=== PATIENT | female | born 1945 | race Caucasian/White ===

== ENCOUNTER 2018-03-30 14:42 | Inpatient (IN) ==
[2018-03-30 17:32] LABS: Basophils % 0.2 % (0.0-0.8); Eosinophils % 0.1 % (0.00-10.9); Hematocrit 44.4 VOL% (35.7-47.0); Immature Granulocytes % 0.3 %; Immature Granulocytes Absolute 0.04 #; Lymphocytes % 6.8 % (21.3-54.2); Mean Corpuscular HGB Conc 31.5 GM/DL (32-36); Mean Corpuscular Hemoglobin 28 PG (27-34); Mean Platelet Volume 9.8 FL (9.6-12.0); Monocytes # 0.6 10*3/uL (0.11-0.8); Neutrophils # 13.2 10*3/uL (1.4-7.4); Neutrophils % 88.6 % (38.7-73.9); Platelet Count 329 T/CUMM (130-400); Red Blood Count 4.99 MC/CUMM (3.8-5.5); White Blood Count 14.8 T/CUMM (4-12)
[2018-03-30 17:46] LABS: Albumin 4.3 G/DL (3.4-5.0); Bilirubin,Total 1.7 MG/DL (0.2-1.0); Calcium 9.1 MG/DL (8.5-10.1); Osmolality,Calculated 282.3 MOS/KG (273-304); Potassium 3.5 MMOL/L (3.5-5.1); Total Protein 8.2 G/DL (6.4-8.3)
[2018-03-30 17:49] LABS: Apearance,Urine CLEAR (Clear); Bacteria,Urine Occasional /HPF (Few); Bilirubin,Urine Negative (Negative); Blood, Urine Small mg/dL (Negative); Glucose,Urine (UA) Negative (Negative); Hyaline Casts,Urine 1 /LPF (0-3); Ketones,Urine Negative (Negative); Mucus,Urine Occasional /LPF (Occasional); Nitrite,Urine Negative (Negative); Protein,Urine Negative; RBC,Urine 3 /HPF (0-4); Squamous Epithelial Cell,Urine Occasional /HPF (0-10); Urine Color Yellow (Yellow); Urine Specific Gravity 1.006 (1.001-1.035); WBC,Urine 5 /HPF (0-6)
[2018-03-30] MEDS ORDERED: SODIUM CHLORIDE 0.9% 1,000 ML IV STA (18:05)
[2018-03-30] MEDS ORDERED: fentaNYL 100 MCG/2 ML VIAL IV STA (18:05)
[2018-03-30] MEDS ORDERED: METOCLOPRAMIDE 10 MG/2 ML VIAL IV STA (18:05)
[2018-03-30] MEDS ORDERED: PANTOPRAZOLE 40 MG VIAL IV STA (18:05)
[2018-03-30] MEDS ORDERED: ONDANSETRON 4 MG/2 ML VIAL IV STA (18:05)
[2018-03-30] MEDS ORDERED: METOCLOPRAMIDE 10 MG/2 ML VIAL ONE (18:23)
[2018-03-30] MEDS ORDERED: ONDANSETRON 4 MG/2 ML VIAL ONE (18:23)
[2018-03-30] MEDS ORDERED: PANTOPRAZOLE 40 MG VIAL IV ONE (18:23)
[2018-03-30 18:26] LABS: Troponin I < 0.015 NG/ML (0.00-0.045)
[2018-03-30] MEDS ORDERED: MEPERIDINE 25 MG/1 ML VIAL IV STA (18:30)
[2018-03-30] MEDS ORDERED: MEPERIDINE 25 MG/1 ML VIAL ONE (18:33)
[2018-03-30] MEDS ORDERED: INFLUENZA VIRUS VACCINE 0.5 ML SYRINGE IM ONE (20:39)
[2018-03-30] MEDS: SODIUM CHLORIDE 0.9% 1,000 ML IV SCH (21:08)
[2018-03-30] MEDS: metroNIDAZOLE INJ 500 MG in PREMIX 1 EACH IV SCH (21:11)
[2018-03-30] MEDS ORDERED: hydrALAZINE 20 MG/1 ML VIAL IV PRN (21:37)
[2018-03-30] MEDS: LEVOFLOXACIN INJ 750 MG in PREMIX 1 EACH IV SCH (22:34)
[2018-03-31] MEDS: metroNIDAZOLE INJ 500 MG in PREMIX 1 EACH IV SCH ×3 (04:22→17:27)
[2018-03-31 04:49] LABS: Basophils % 0.1 % (0.0-0.8); Eosinophils % 0.1 % (0.00-10.9); Hematocrit 37.1 VOL% (35.7-47.0); Immature Granulocytes % 0.3 %; Immature Granulocytes Absolute 0.02 #; Lymphocytes # 1.2 10*3/uL (1.4-4.0); Lymphocytes % 18.4 % (21.3-54.2); Mean Corpuscular Hemoglobin 28 PG (27-34); Mean Corpuscular Volume 89.8 FL (87-102); Mean Platelet Volume 11.5 FL (9.6-12.0); Monocytes # 0.3 10*3/uL (0.11-0.8); Monocytes % 3.9 % (1.7-12.7); Neutrophils # 5.2 10*3/uL (1.4-7.4); Neutrophils % 77.2 % (38.7-73.9); Red Blood Count 4.13 MC/CUMM (3.8-5.5); Red Cell Distribution Width 13.1 % (9.3-17.3)
[2018-03-31 04:54] LABS: Hemoglobin 11.5 GM/DL (12.0-16.0); White Blood Count 6.7 T/CUMM (4-12)
[2018-03-31 04:55] LABS: Platelet Count 201 T/CUMM (130-400)
[2018-03-31 05:04] LABS: Albumin 3.2 G/DL (3.4-5.0); Bilirubin,Total 0.8 MG/DL (0.2-1.0); Calcium 8.2 MG/DL (8.5-10.1); Osmolality,Calculated 284.8 MOS/KG (273-304); Potassium 4.1 MMOL/L (3.5-5.1); Risk Ratio 3.07; Total Protein 6.4 G/DL (6.4-8.3); VLDL CHOLESTEROL 15.2 MG/DL
[2018-03-31] MEDS: SODIUM CHLORIDE 0.9% 1,000 ML IV SCH ×4 (05:22→21:19)
[2018-03-31] MEDS: VERAPAMIL SR 240 MG TABLET PO SCH (11:43)
[2018-03-31] MEDS: LISINOPRIL 20 MG TABLET PO SCH (18:19)
[2018-03-31] MEDS: ONDANSETRON 4 MG/2 ML VIAL IV PRN (20:32)
[2018-03-31] MEDS: LEVOFLOXACIN INJ 750 MG in PREMIX 1 EACH IV SCH (22:45)
[2018-04-01] MEDS: PROMETHAZINE INJ 25 MG in SODIUM CHLORIDE 0.9% 50 ML IV PRN (00:25)
[2018-04-01] MEDS: metroNIDAZOLE INJ 500 MG in PREMIX 1 EACH IV SCH ×4 (02:39→20:54)
[2018-04-01] MEDS: SODIUM CHLORIDE 0.9% 1,000 ML IV SCH ×2 (03:32→08:47)
[2018-04-01 04:33] LABS: Basophils % 0.3 % (0.0-0.8); Hematocrit 37.3 VOL% (35.7-47.0); Hemoglobin 11.6 GM/DL (12.0-16.0); Immature Granulocytes % 0.7 %; Immature Granulocytes Absolute 0.05 #; Lymphocytes # 0.8 10*3/uL (1.4-4.0); Lymphocytes % 11.1 % (21.3-54.2); Mean Corpuscular HGB Conc 31.1 GM/DL (32-36); Mean Corpuscular Hemoglobin 28 PG (27-34); Mean Corpuscular Volume 89.9 FL (87-102); Mean Platelet Volume 9.8 FL (9.6-12.0); Monocytes # 0.1 10*3/uL (0.11-0.8); Monocytes % 1.7 % (1.7-12.7); Neutrophils # 6.5 10*3/uL (1.4-7.4); Neutrophils % 86.2 % (38.7-73.9); Platelet Count 263 T/CUMM (130-400); Red Blood Count 4.15 MC/CUMM (3.8-5.5); Red Cell Distribution Width 12.9 % (9.3-17.3); White Blood Count 7.5 T/CUMM (4-12)
[2018-04-01 05:00] LABS: Albumin 3.4 G/DL (3.4-5.0); Bilirubin,Total 0.5 MG/DL (0.2-1.0); Calcium 8.3 MG/DL (8.5-10.1); Osmolality,Calculated 273.7 MOS/KG (273-304); Potassium 3.6 MMOL/L (3.5-5.1); Total Protein 6.7 G/DL (6.4-8.3)
[2018-04-01] MEDS: VERAPAMIL SR 240 MG TABLET PO SCH (08:00)
[2018-04-01] MEDS ORDERED: TISSUE ADHESIVE 1 EACH APPLICATOR TOP ONE (08:35)
[2018-04-01] MEDS ORDERED: BUPIVACAINE MPF 0.25% 30 ML VIAL ONE (08:35)
[2018-04-01] MEDS ORDERED: LIDOCAINE 1%/EPI INJ 20 ML VIAL ONE (08:35)
[2018-04-01] MEDS ORDERED: PROPOFOL 200 MG/20 ML VIAL IV ONE (10:13)
[2018-04-01] MEDS ORDERED: fentaNYL 100 MCG/2 ML VIAL ONE ×2 (10:13→10:14)
[2018-04-01] MEDS ORDERED: DEXAMETHASONE 10 MG/1 ML VIAL ONE (10:14)
[2018-04-01] MEDS ORDERED: SEVOFLURANE 1 UNIT/15 MINUTE INH ONE (10:15)
[2018-04-01] MEDS ORDERED: ONDANSETRON 4 MG/2 ML VIAL ONE (10:15)
[2018-04-01] MEDS ORDERED: ePHEDrine 50 MG/ML AMP ONE (10:15)
[2018-04-01] MEDS ORDERED: NEOSTIGMINE 10 MG/10 ML VIAL ONE (10:15)
[2018-04-01] MEDS ORDERED: ROCURONIUM 100 MG/10 ML VIAL IV ONE (10:15)
[2018-04-01] MEDS ORDERED: GLYCOPYRROLATE 0.4 MG/2 ML VIAL ONE (10:16)
[2018-04-01] MEDS: HYDROmorphone 2 MG/1 ML VIAL IV PRN ×2 (14:35→17:48)
[2018-04-01] MEDS: LISINOPRIL 20 MG TABLET PO SCH (20:55)
[2018-04-01] MEDS: LEVOFLOXACIN INJ 750 MG in PREMIX 1 EACH IV SCH (22:40)
[2018-04-02] MEDS: metroNIDAZOLE INJ 500 MG in PREMIX 1 EACH IV SCH ×4 (02:35→21:20)
[2018-04-02 05:53] LABS: Hematocrit 37.8 VOL% (35.7-47.0); Hemoglobin 11.6 GM/DL (12.0-16.0); Immature Granulocytes % 0.3 %; Immature Granulocytes Absolute 0.02 #; Lymphocytes # 0.8 10*3/uL (1.4-4.0); Lymphocytes % 11.3 % (21.3-54.2); Mean Corpuscular HGB Conc 30.7 GM/DL (32-36); Mean Corpuscular Hemoglobin 28 PG (27-34); Mean Corpuscular Volume 91.1 FL (87-102); Mean Platelet Volume 10.1 FL (9.6-12.0); Monocytes # 0.3 10*3/uL (0.11-0.8); Monocytes % 4.8 % (1.7-12.7); Neutrophils # 5.9 10*3/uL (1.4-7.4); Neutrophils % 83.6 % (38.7-73.9); Platelet Count 271 T/CUMM (130-400); Red Blood Count 4.15 MC/CUMM (3.8-5.5); Red Cell Distribution Width 13.1 % (9.3-17.3); White Blood Count 7.1 T/CUMM (4-12)
[2018-04-02 06:03] LABS: Albumin 3.3 G/DL (3.4-5.0); Calcium 8.8 MG/DL (8.5-10.1); INR 1.1; Osmolality,Calculated 280.3 MOS/KG (273-304); PT Patient Result 11.4 SECS; Potassium 4.5 MMOL/L (3.5-5.1); Total Protein 6.5 G/DL (6.4-8.3)
[2018-04-02] MEDS ORDERED: INDOMETHACIN SUPP 50 MG SUPP RECTAL ONE (06:30)
[2018-04-02] MEDS: VERAPAMIL SR 240 MG TABLET PO SCH (08:05)
[2018-04-02] MEDS ORDERED: LACTATED RINGERS 500 ML IV ONE (09:00)
[2018-04-02] MEDS ORDERED: fentaNYL 100 MCG/2 ML VIAL ONE (10:32)
[2018-04-02] MEDS ORDERED: LIDOCAINE 100 MG/5 ML SYRINGE ONE (10:45)
[2018-04-02] MEDS ORDERED: ESMOLOL 100 MG/10 ML VIAL IV ONE (10:45)
[2018-04-02] MEDS ORDERED: SUCCINYLCHOLINE 200 MG/10 ML VIAL ONE (10:45)
[2018-04-02] MEDS ORDERED: ONDANSETRON 4 MG/2 ML VIAL ONE (10:45)
[2018-04-02] MEDS ORDERED: ROCURONIUM 100 MG/10 ML VIAL IV ONE (10:45)
[2018-04-02] MEDS ORDERED: PROPOFOL 200 MG/20 ML VIAL IV ONE (10:45)
[2018-04-02] MEDS ORDERED: SEVOFLURANE 1 UNIT/15 MINUTE INH ONE (12:08)
[2018-04-02] MEDS ORDERED: ONDANSETRON 4 MG/2 ML VIAL IV ONE (13:43)
[2018-04-02] MEDS: LISINOPRIL 20 MG TABLET PO SCH (18:35)
[2018-04-02] MEDS: PROMETHAZINE INJ 25 MG in SODIUM CHLORIDE 0.9% 50 ML IV PRN (19:40)
[2018-04-02] MEDS: LEVOFLOXACIN INJ 750 MG in PREMIX 1 EACH IV SCH (22:25)
[2018-04-03] MEDS: metroNIDAZOLE INJ 500 MG in PREMIX 1 EACH IV SCH ×2 (02:28→11:38)
[2018-04-03] MEDS: ONDANSETRON 4 MG/2 ML VIAL IV PRN ×2 (04:54→11:32)
[2018-04-03] MEDS: HYDROmorphone 2 MG/1 ML VIAL IV PRN (04:58)
[2018-04-03 06:14] LABS: Basophils % 0.1 % (0.0-0.8); Eosinophils % 0.3 % (0.00-10.9); Hematocrit 37.2 VOL% (35.7-47.0); Hemoglobin 11.7 GM/DL (12.0-16.0); Immature Granulocytes % 0.4 %; Immature Granulocytes Absolute 0.03 #; Lymphocytes # 1.8 10*3/uL (1.4-4.0); Lymphocytes % 26.2 % (21.3-54.2); Mean Corpuscular HGB Conc 31.5 GM/DL (32-36); Mean Corpuscular Hemoglobin 28 PG (27-34); Mean Corpuscular Volume 90.3 FL (87-102); Mean Platelet Volume 10.2 FL (9.6-12.0); Monocytes # 0.4 10*3/uL (0.11-0.8); Monocytes % 6.6 % (1.7-12.7); Neutrophils # 4.4 10*3/uL (1.4-7.4); Neutrophils % 66.4 % (38.7-73.9); Platelet Count 245 T/CUMM (130-400); Red Blood Count 4.12 MC/CUMM (3.8-5.5); Red Cell Distribution Width 13.1 % (9.3-17.3); White Blood Count 6.7 T/CUMM (4-12)
[2018-04-03 06:25] LABS: Albumin 3.1 G/DL (3.4-5.0); Calcium 8.2 MG/DL (8.5-10.1); Osmolality,Calculated 280.3 MOS/KG (273-304); Potassium 3.3 MMOL/L (3.5-5.1)
[2018-04-03] MEDS: VERAPAMIL SR 240 MG TABLET PO SCH (08:31)
[2018-04-03] MEDS ORDERED: POTASSIUM CHLORIDE 20 MEQ TABLET PO ONE (12:28)
[2018-04-03] MEDS ORDERED: SODIUM CHLORIDE 0.9% 1,000 ML IV SCH (13:00)
[2018-04-03] MEDS: PROMETHAZINE INJ 25 MG in SODIUM CHLORIDE 0.9% 50 ML IV PRN (14:08)
[2018-04-03] MEDS ORDERED: hydrALAZINE 10 MG TABLET PO PRN (16:22)
[2018-04-03] MEDS ORDERED: PROMETHAZINE 50 MG SUPP RECTAL PRN (16:23)
[2018-04-03] MEDS ORDERED: PROMETHAZINE 25 MG TABLET PO PRN (16:23)
[2018-04-03] MEDS ORDERED: MELATONIN 3 MG TABLET PO PRN (16:24)
[2018-04-03] MEDS: LISINOPRIL 20 MG TABLET PO SCH (18:17)
[2018-04-03] MEDS: metroNIDAZOLE 500 MG TABLET PO SCH (21:37)
[2018-04-04 06:03] LABS: Basophils % 0.4 % (0.0-0.8); Eosinophils # 0.1 10*3/uL (0.0-0.87); Eosinophils % 1.2 % (0.00-10.9); Hematocrit 40.1 VOL% (35.7-47.0); Hemoglobin 12.4 GM/DL (12.0-16.0); Immature Granulocytes % 0.3 %; Immature Granulocytes Absolute 0.02 #; Lymphocytes # 1.8 10*3/uL (1.4-4.0); Lymphocytes % 25.2 % (21.3-54.2); Mean Corpuscular HGB Conc 30.9 GM/DL (32-36); Mean Corpuscular Hemoglobin 28 PG (27-34); Mean Corpuscular Volume 90.7 FL (87-102); Mean Platelet Volume 10.2 FL (9.6-12.0); Monocytes # 0.4 10*3/uL (0.11-0.8); Neutrophils # 4.9 10*3/uL (1.4-7.4); Neutrophils % 67.9 % (38.7-73.9); Platelet Count 272 T/CUMM (130-400); Red Blood Count 4.42 MC/CUMM (3.8-5.5); Red Cell Distribution Width 13.2 % (9.3-17.3); White Blood Count 7.2 T/CUMM (4-12)
[2018-04-04 06:20] LABS: Albumin 3.1 G/DL (3.4-5.0); Bilirubin,Total 0.9 MG/DL (0.2-1.0); Calcium 8.3 MG/DL (8.5-10.1); Osmolality,Calculated 278.4 MOS/KG (273-304); Potassium 3.5 MMOL/L (3.5-5.1); Total Protein 6.4 G/DL (6.4-8.3)
[2018-04-04] MEDS ORDERED: LEVOFLOXACIN 750 MG TABLET PO SCH (09:00)
[2018-04-04] MEDS: VERAPAMIL SR 240 MG TABLET PO SCH (10:20)
[2018-04-04] MEDS: metroNIDAZOLE 500 MG TABLET PO SCH ×2 (10:20→15:59)
[2018-04-04 12:46] VITALS: BP 141/73
== END 2018-04-04 16:00 | disposition home or self-care (01) | DRG 418 ==
LOC: N.ED 14:42 → N.EDINP 19:07 → SUATTDRO 19:07 → N.EDINP 19:36 → N.3E 19:39
PROVIDERS: ADMIT Internal Medicine; ATTEND Internal Medicine
PROC: LAPCHOL (2018-04-01 14:20)
PROC: ERCPWSP (ICD-10-PCS; 2018-04-02 09:20)